=== PATIENT | male | born 1970 | race African-American/Black ===

== ENCOUNTER 2018-06-12 18:27 | Emergency (ER) | payer OTHER ==
[~2018-06-12] VITALS: Ht 165.1 cm; Wt 90.7 kg
[~2018-06-12 18:27] MED LIST: AUGMENTIN 875875 MG PO; MEDROLDOSEPACK PO; [UNRECOGNIZED DRUG - REMARK] PO
[2018-06-12] MEDS ORDERED: CYCLOBENZAPRINE5 MG PO (20:05)
[2018-06-12] MEDS ORDERED: MOBIC7.5 MG PO (20:05)
[2018-06-12 20:20] VITALS: BP 126/103
== END 2018-06-12 20:24 | disposition home or self-care (01) ==
LOC: ER 18:27
DX: M25.512 Pain in left shoulder (principal); M25.552 Pain in left hip; F17.210 Nicotine dependence, cigarettes, uncomplicated; I10 Essential (primary) hypertension; V89.2XXA Person injured in unspecified motor-vehicle accident, traffic, initial encounter; Y92.89 Other specified places as the place of occurrence of the external cause; Y93.89 Activity, other specified; Y99.8 Other external cause status